=== PATIENT | male | born 1965 | race Caucasian/White ===

== ENCOUNTER 2019-08-11 11:46 | Emergency (ER) | payer BC, SELFPAY ==
[2019-08-11 11:46] VITALS: BP 131/91; PULSE 113; RESP 16; TEMP 36.2; O2SAT 99; BMI 25.1
--- NOTE | 2019-08-11 12:00 | ED.VISSUMM ---
- ER Visit Summary Date of Service: 08/11/19 Chief Complaint: Laceration to left index finger History of Present Illness: The patient is a 54 M who presents with a laceration to his left index finger that occurred today. Patient was using a chainsaw when he accidentally cut the dorsum of his left index finger. Patient denies any paresthesias or weakness. Patient states the pain is only mild at the present time. Patient states he is able to move his left index finger at the MP, PIP, and DIP joints. Patient states she looked into the wound when it first happened and does not believe there is a fracture or tendon laceration. Patient does not know when his last tetanus but thinks it was 1993. Physical Examination: Vital signs are stable. Patient is afebrile. Patient is in no acute distress. Skin is warm dry. There is a 3 cm full-thickness linear laceration over the dorsal aspect of the proximal phalanx of the left index finger. There is some involvement of the extensor tendon but there is no complete laceration of the tendon. There is some loss of tissue from the laceration. There is large gapping of the wound margins. There is no bony crepitance or step-off. There is no tenderness. Sensation was intact light touch in all digits. Capillary refill was less than 2 seconds in all digits. Radial pulses are equal bilaterally. Strength is 5/5 in flexion and extension of the MP, PIP, and DIP joints. Emergency Department Course and Treatment: Patient was given a tetanus booster here. Patient was given a dose of Keflex. The wound was cleaned and irrigated with copious amounts of normal saline. The left index finger was anesthetized 1% lidocaine via digital block. The wound was closed loosely with 3 simple interrupted #4-0 nylon sutures under sterile technique. Patient tolerated the procedure well. Bacitracin and gauze dressing was applied. Patient was given a prescription for Keflex. Patient was instructed to follow-up with his primary care physician in 5 to 7 days for wound recheck and suture removal. Patient understood and was agreeable with the plan. All questions were answered. Disposition: Discharge home Impression: Left index finger laceration This note was generated with [employer] software. It may contain incorrect words, spelling, and punctuation that were not noted in review of the chart prior to signing ED Disposition - Plan for ED Patient: Disposition: Home or Assisted Living Diagnosis: Laceration of left index finger w/o foreign body w/o damage to nail Instructions: ED Laceration Hand Prescriptions: Cephalexin [Keflex] 500 mg PO Q6 #40 cap Prescription Printed Referrals: NOT,DEFINED [NON-STAFF] - 7 Days for suture removal
[2019-08-11] MEDS: Cephalexin 250 MG Capsule 500 MG PO (12:15)
[2019-08-11] MEDS: Diphth,Pertuss(Acell),Tet Vac 0.5 ML Vial IM (12:16)
== END 2019-08-11 13:12 | disposition home or self-care (01) ==
PROVIDERS: Emergency Provider Emergency Medicine
DX: S61.211A Laceration without foreign body of left index finger without damage to nail, initial encounter (principal); W29.3XXA Contact with powered garden and outdoor hand tools and machinery, initial encounter; Y93.9 Activity, unspecified; Y92.89 Other specified places as the place of occurrence of the external cause; Y99.9 Unspecified external cause status; Z23 Encounter for immunization; F17.210 Nicotine dependence, cigarettes, uncomplicated
CPT/HCPCS: 12002; 90471; 90715; 99285